=== PATIENT | female | born 1955 | race Caucasian/White ===

== ENCOUNTER → 2024-11-16 13:43 | Outpatient (REF) | payer BC, SELFPAY | LOC: HWRAD 13:43 | PROVIDERS: ATTENDING PHYSICIAN Physician Assistant Medical | DX: Z12.31 Encounter for screening mammogram for malignant neoplasm of breast (principal); Z13.820 Encounter for screening for osteoporosis | CPT/HCPCS: 77063; 77067; 77080 ==